=== PATIENT | female | born 1995 | race Caucasian/White ===

== ENCOUNTER 2024-09-05 15:47 | Emergency (ER) | payer BC, SELFPAY ==
[2024-09-05 15:50] VITALS: BP 125/72
--- NOTE | 2024-09-05 17:30 | ED.GENMED ---
History of Present Illness
General
Chief Complaint: Dehydration Symptoms
Source: patient
Exam Limitations: none
Time Seen by Provider: 09/05/24 17:28
Nursing documentation reviewed up to this point in time: agreed with
History of Present Illness
History of Present Illness:
25-year-old female who is 13 weeks , presenting with nausea, vomiting, and migraine. She reports a history of nausea and vomiting at other times during this but never as bad as today. Unable to hold anything down. Previously, she
consulted her nurses' association counselor, who advised using antiemetics like prochlorperazine, rectal suppositories and metoclopramide, which she used for a couple of days. She continues to use ondansetron but has not taken any medications today. The patient
reports vomiting a few times today, last was 5 minutes ago. She states her migraine is typical for her, one sided over right forehead, described as frontal and of a severe nature, typical for her past episodes.
Past History
Past History
ED Past Medical History: Other (Migraines, endometriosis)
ED Past Surgical History: Other ([place] teeth)
Social History
Tobacco: Non-smoker
Alcohol: None
Personal:
Living: with family
Employment: Employed (Works from home)
Review of Systems
Review of Systems
Allergies reviewed?: Yes
All Other Systems: ROS reviewed and negative except as documented in HPI and ROS
Constitutional: Denies fever
ABD/GI: Reports nausea and vomiting; Denies abdominal pain
: Denies discharge
Skin: Reports no symptoms
Neurological: Reports headache; Denies dizzy or weakness
Phy Exam
Physical Exam
Physical Exam:
GENERAL: No acute distress. A&Ox3.
CONSTITUTIONAL: Afebrile.
EYES: clear, conjunctivae normal
ENMT: moist mucus membranes, Pharynx nl
RESPIRATORY: Regular respirations, nonlabored, lungs clear.
CARDIOVASCULAR: Regular rate and rhythm, no murmurs, no rubs.
GI: Soft, nontender, normal BS
MUSCULOSKELETAL: Moves with ease. Well perfused.
SKIN: Warm, dry, pink
PSYCH: Normal mood and affect. Well kept, interactive and appropriate
NEUROLOGIC: Awake, alert and oriented. No focal neurological deficits
Course
Orders/Labs/Results
Orders:
Orders
09/05/24 17:37
0.9% Sodium Chloride 1000 ml [Nss] 1,000 ml IV BOLUS
09/05/24 17:38
Diphenhydramine [Benadryl] 50 mg IV NOW STA
Ondansetron Injectable [Zofran] 4 mg IV NOW STA
Vital Signs
Initial and Last Documented VS:
Initial Vital Signs
Temp Pulse Resp BP Pulse Ox
98 F 93 16 125/72 100
09/05/24 15:50 09/05/24 15:50 09/05/24 15:50 09/05/24 15:50 09/05/24 15:50
Last Documented Vital Signs
Temp Pulse Resp BP Pulse Ox
98.2 F 70 16 102/55 100
09/05/24 18:20 09/05/24 18:20 09/05/24 18:20 09/05/24 18:20 09/05/24 18:20
MDM/Problems Addressed
Differential Diagnosis Includes:
Nausea and vomiting of early , hyperemesis gravidarum
Migraine
Dehydration
MDM/Problems Addressed:
25-year-old female who is 13 weeks , presenting with nausea, vomiting, and migraine. She reports a history of nausea and vomiting at other times during this but never as bad as today. Unable to hold anything down. Previously, she
consulted her nurses' association counselor, who advised using antiemetics like prochlorperazine, rectal suppositories and metoclopramide, which she used for a couple of days. She continues to use ondansetron but has not taken any medications today. The patient
reports vomiting a few times today, last was 5 minutes ago. She states her migraine is typical for her, one sided over right forehead, described as frontal and of a severe nature, typical for her past episodes.
Afebrile, NAD
No hyperemesis
Plan:
1. Initiate IV fluids for hydration.
2. Administer ondansetron and diphenhydramine intravenously for nausea and migraine management.
3. Has appointment with her nurses' association counselor in 3 days
4. Encourage continued use of vitamins.
5. Patient reassured that symptoms are typical for early and should improve soon.
8:00 p.m.
Answered pt call junior, she states her headache is 85% better, no longer nauseous, 1L IVFs infused, is asking to go home
She has an appointment with her OB doctor in 3 days
*Pulse Oximetry
SaO2: 100
Oxygen Mode of Delivery: Room air
Patient hypoxic: not evaluated
*Critical Care Note
Total Time (30-74mins, 75-104mins- exclusive of procedures): Not Applicable
ED Attending Note
-
Portions of this chart may have been created with voice recognition software.� Occasional wrong word or��sound alike� substitutions may have occurred due to the inherent limitations of voice recognition software.
Discharge Plan
Departure
Patient Disposition: Home (Routine Discharge)
Date of Disposition: 09/05/24
Time of Disposition: 20:04
Patient with high blood pressure during this ER visit?: No
Condition: Good
Discharge Problem:
nausea and vomiting in early , Headache
Instructions: Headache in adults - ED discharge instructions, Morning sickness - ED discharge instructions
Prescriptions:
No Action
ondansetron 4 mg Tablet,Disintegrating
4 mg PO Q8H PRN (Reason: vom)
1 mg Tablet
1 tab PO DAILY
Referrals:
Your OB doctor [Other] - Keep scheduled appt
NONE,* [Family Provider, Internal Medicine]
Interventions
Interventions:
*Risk Screen - Suicide Last Done: 09/05/24 15:50
*General Assessment Last Done: 09/05/24 18:20
*Neglect/Abuse Screening Last Done: 09/05/24 15:50
*ED COVID-19 Vaccine History Last Done: 09/05/24 18:20
ED- Cardiac Assessment Last Done: 09/05/24 18:20
ED- Neurological Assessment Last Done: 09/05/24 18:20
ED- Pulmonary Assessment Last Done: 09/05/24 18:20
Discharge Date and Time
Print Language: LITHUANIAN
[2024-09-05 18:20] VITALS: BP 102/55
[2024-09-05] MEDS: NSS 1000 IV (18:25)
[2024-09-05] MEDS: ZOFRAN 4 MG IV (18:26)
[2024-09-05] MEDS: BENADRYL 50 MG IV (18:27)
[2024-09-05 20:50] VITALS: BP 100/59
== END 2024-09-05 20:50 | disposition home or self-care (01) ==
LOC: EMR 15:47
PROVIDERS: EMERGENCY PHYSICIAN Emergency Medicine
DX: O21.9 Vomiting of pregnancy, unspecified (principal); O99.351 Diseases of the nervous system complicating pregnancy, first trimester; G43.909 Migraine, unspecified, not intractable, without status migrainosus; Z3A.13 13 weeks gestation of pregnancy
CPT/HCPCS: 96374; 96375; 99284